=== PATIENT | female | born 1995 | race Caucasian/White ===

== ENCOUNTER → 2018-03-12 08:26 | Outpatient (CLI) | payer MEDICAID, SELFPAY ==
[2018-03-12 09:15] LABS: Cholesterol 179 mg/dL (200); Glucose 120 mg/dL (74-106); High Density Lipoprotein 47 mg/dL; T4 Free Direct 0.84 ng/dL (0.76-1.46); Thyroid Stim Hormone (TSH) 3.58 uIU/mL (0.358-3.74); Triglycerides 98 mg/dL; Very Low Density Lipoprotein 20 mg/dL (5-40)
== END ==
PROVIDERS: Family Provider Student in an Organized Health Care Education/Training Program; PCP Student in an Organized Health Care Education/Training Program; Referring Provider Obstetrics & Gynecology; Visit Provider Obstetrics & Gynecology
DX: E28.2 Polycystic ovarian syndrome (principal)
CPT/HCPCS: 36415; 80061; 82947; 84439; 84443

== ENCOUNTER → 2018-03-15 15:44 | Outpatient (CLI) | payer MEDICAID, SELFPAY ==
--- NOTE | 2018-03-15 15:46 | US_ITS ---
STUDY: ULTRASOUND TRANSVAGINAL CLINICAL: Female, 22 years old. PCOS TECHNIQUE: Transvaginal COMPARISON: None. FINDINGS: Normal uterine size measuring 3.1 x 4.7 x 3.0 cm in maximal craniocaudal dimension. There are no myometrial masses. Normal endometrial thickness measuring 7 mm. There are no endometrial masses, and there is no fluid in the endometrial cavity. Nabothian cysts at the uterine cervix. Normal right ovary, measuring 3.5 x 4.4 x 2.8 cm. There are multiple follicles without a dominant cyst. Normal left ovary, measuring 2.7 x 2.6 x 2.5 cm. There are multiple follicles without a dominant cyst. There is no free fluid in the pelvis. The urinary bladder has a volume of 255 cc. US/Transvaginal Non- IMPRESSION: Nabothian cysts. Electronically Signed: Deepak Cordova DO at 23:34 EDT Tel [phone], Service support ,
--- NOTE | 2018-03-15 15:46 | US_ITS ---
STUDY: ULTRASOUND TRANSVAGINAL CLINICAL: Female, 22 years old. PCOS TECHNIQUE: Transvaginal COMPARISON: None. FINDINGS: Normal uterine size measuring 3.1 x 4.7 x 3.0 cm in maximal craniocaudal dimension. There are no myometrial masses. Normal endometrial thickness measuring 7 mm. There are no endometrial masses, and there is no fluid in the endometrial cavity. Nabothian cysts at the uterine cervix. Normal right ovary, measuring 3.5 x 4.4 x 2.8 cm. There are multiple follicles without a dominant cyst. Normal left ovary, measuring 2.7 x 2.6 x 2.5 cm. There are multiple follicles without a dominant cyst. There is no free fluid in the pelvis. The urinary bladder has a volume of 255 cc. US/Pelvic (Non ) IMPRESSION: Nabothian cysts. Electronically Signed: Deepak Cordova DO at 23:34 EDT Tel [phone], Service support ,
--- NOTE | 2018-03-15 15:46 | US_ITS ---
STUDY: THYROID ULTRASOUND REASON FOR EXAM: Female, 22 years old. PCOS TECHNIQUE: Ultrasound evaluation of the thyroid was performed with real-time and static ramirez-scale imaging. COMPARISON: None. FINDINGS: RIGHT LOBE: The right lobe of the thyroid gland measures 5.1 x 1.9 x 1.9 cm. There is a homogeneous echotexture. There are no demonstrated solid, cystic or complex lesions. LEFT LOBE: The left lobe of the thyroid gland measures 5.1 x 2.1 x 1.8 cm. There is a homogeneous echotexture. There are no demonstrated solid, cystic or complex lesions. ISTHMUS: The isthmus measures 3 mm . The regional lymph nodes are normal. US/Thyroid IMPRESSION: Normal ultrasound examination of the thyroid. Electronically Signed: Deepak Cordova DO at 23:33 EDT Tel [phone], Service support ,
== END ==
LOC: PAVLAB 03-11 10:07 → US 15:45
PROVIDERS: Family Provider Student in an Organized Health Care Education/Training Program; PCP Student in an Organized Health Care Education/Training Program; Referring Provider Obstetrics & Gynecology; Visit Provider Obstetrics & Gynecology
DX: E28.2 Polycystic ovarian syndrome (principal)
CPT/HCPCS: 76536; 76830; 76856; 93976

== ENCOUNTER → 2019-02-11 09:17 | Outpatient (CLI) | payer OTHER, MEDICAID, SELFPAY ==
[2018-11-19 10:36] VITALS: BMI 42.4
[2019-02-11 10:22] LABS: Absolute Lymphocyte Count 2.84 X10^3/uL (0.83-4.51); Absolute Neutrophil Count 3.5 X10^3/uL (2.0-7.7); Basophil# 0.03 X10^3/uL; Basophil% 0.4 % (0-1); Eosinophil# 0.17 X10^3/uL; Eosinophils% 2.5 % (0-5); Hematocrit 41.6 % (37-47); Hemoglobin 13.5 g/dL (12.0-15.0); Lymphocyte # 2.84 X10^3/ul (4.0); Lymphocyte % 41.3 % (19-41); Mean Corp Hgb Conc 32.5 g/dL (32-36); Mean Corpuscular Hgb 27.7 pg (27.0-32.0); Mean Corpuscular Volume 85.2 fL (81-99); Monocyte# 0.34 X10^3/uL; Monocyte% 4.9 % (0-10); NRBC Flagged by Analyzer 0 % (0-5); Neutrophil # 3.47 X10^3/uL (2.7-7.7); Neutrophil % 50.5 % (47-70); Platelet Count 292 K/mm3 (150-450); RBC Distribution Width CV 13.7 % (11.6-14.6); RBC Distribution Width SD 42.4 fl (35.1-43.9); Red Blood Count 4.88 M/mm3 (4.2-5.4); White Blood Count 6.9 K/mm3 (4.4-11.0)
[2019-02-11 10:51] LABS: Hemoglobin A1c 5.3 % (4.2-6.3)
[2019-02-11 11:14] LABS: ALB/GLOB Ratio 1.1 RATIO (0.9-2.4); AST(SGOT) 16 U/L (15-37); Alanine Aminotransfer ALT/SGPT 36 U/L (13-56); Albumin, Serum 3.7 g/dL (3.2-5.0); Alkaline Phosphatase 81 U/L (45-117); Anion Gap 5 (5-15); BUN 9 mg/dL (7-18); BUN/Creat Ratio 13.3 RATIO (10-20); Calcium,Total 8.8 mg/dL (8.5-10.1); Chloride 110 mmol/L (98-107); Cholesterol 157 mg/dL (200); Creatinine, Serum 0.68 mg/dL (0.55-1.02); EST Glomerular Filtration Rate 116 mL/min (>60); Est Glom Filt Rate - Afr Amer 140 mL/min (>60); Globulin 3.5 g/dL (2.2-4.2); Glucose 104 mg/dL (74-106); High Density Lipoprotein 39 mg/dL; Potassium 3.6 mmol/L (3.5-5.1); Protein, Total 7.2 g/dL (6.4-8.2); Sodium Level 140 mmol/L (136-145); Triglycerides 178 mg/dL; Very Low Density Lipoprotein 36 mg/dL (5-40)
== END ==
PROVIDERS: Family Provider Family Medicine; PCP Family Medicine; Referring Provider Family Medicine; Visit Provider Family Medicine
DX: E66.01 Morbid (severe) obesity due to excess calories (principal); L83 Acanthosis nigricans; J45.20 Mild intermittent asthma, uncomplicated
CPT/HCPCS: 36415; 80053; 80061; 83036; 84443; 85025

== ENCOUNTER 2019-02-21 06:58 | Outpatient (RCR) | payer OTHER, SELFPAY ==
[2018-11-19 10:36] VITALS: BMI 42.4
--- NOTE | 2019-02-21 09:00 | HP.PTEVAL ---
Patient's Visit Information DANIELE MURRAY is a 23 year old F referred to Physical Therapy by Gokul Albert MD with a diagnosis of R MCL Sprain. Date of Evaluation: 02/21/19 Physical Therapist: Twila Chand DPT - Visit Plan Frequency: 1x/Week Duration: 1 Week Plan: 02/21/19 - Pt. given HEP to perform I at [employer], isntructed to reach out if concerns. pt. educated on pain management & proper exercise progression. HEP Prescribed: SLR, Supine Bridges, SL Clams (BTB), STS, SLS, LEg Curl Machine, Leg Press, Hip Add. Squeeze, Lateral Band Walks, Lateral Step-Ups. - Subjective Findings: Pt. began having R knee pain 2 months ago, visited and stated it was a sprain. [employer]. Believes it happened at the gym working o the elliptical and slipped. Flares up when on your feet. Pain free currently, pain doesn't get bad until night time. Worst: 4/10. Aggravating: being on her feet a lot, squatting, crouching, sitting cross-legged. Pain free Relieving factors: Ibuprofein, ice. Marcus disruption of sleep & N/T & radiating pain up and down the leg. Reports knee has gotten a lot better and stairs have been good. 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 Exercise program: Regular member at [employer] before injury. PMH/Meds: No significant concerns. No tests performed by - referred for PT for evaluate/treat. - Objective Posture: RS, FH - coreected w/ v/c, but not maintained. Gait: slight B toe-out, no other deviations noted. HR/TR: WFL w/ UE assist. SLS: R/L 15 seconds - no pain/discomfort reported (slight LOB). ROM: Ankle/Knee/Hip WFL. Strength: Ankle 5/5, Knee Ext 5/5, Knee Flex 4/5, Hip 5/5 Core: Fair minus. Flexibility: GAstroc & soleus: mild, Hamstring: Mod. Palpation: TTP w/ light touch at medial knee. Sensation: WNL to Gross B touch - Goals Goal 1:: Pt. will be I /w HEP & progression. Goal Time Frame: 4-6 Weeks - Rehabilitation Potential Physical Therapy Diagnosis: Presents w/ hypomobility and R knee pain which leads to pain performing ADL's. Rehabilitation Potential: Good - Anticipated Interventions Patient/Client Instruction: Educate patient on: Benefits of Fitness Program Therapeutic Exercise to Include: Strength training, Endurance training, Balance training, Postural training, Flexibilty training For the Purpose of:: To improve muscle performance and motor function Thank you for the opportunity to evaluate your patient. For Medicare and Medicare HMO plans, please review the plan of care and approve it. It will need to be FAXED BACK to us at [phone] for Medicare purposes. For Medicare only, by signing this I certify the plan of care. Please let me know if there are questions or concerns regarding this plan of care. Physician Signature: Date:
--- NOTE | 2019-04-27 10:37 | HP.PT.NRP ---
HP - Discharge Summary (1) - Patient Information DANIELE MURRAY was seen in my office for initial evaluation on 02/21/19. The following Plan of Care was established for this patient: Initial Frequency: 1x/Week Initial Duration: 1 Week - Anticipated Interventions Patient/Client Instruction: Educate patient on: Benefits of Fitness Program Therapeutic Exercise to Include: Strength training, Endurance training, Balance training, Postural training, Flexibilty training For the Purpose of:: To improve muscle performance and motor function This patient was last seen in our office . Pertinent comments regarding their Physical therapy will appear below: At this point I will be discontinuing this patient from physical therapy. I would be happy to see this patient again in the future if found appropriate by the physician. Thank you! JF BaronT
== END 2019-02-21 19:00 | disposition home or self-care (01) ==
LOC: PT 06:58
PROVIDERS: Family Provider Family Medicine; PCP Family Medicine; Referring Provider Family Medicine; Visit Provider Family Medicine
DX: S83.411D Sprain of medial collateral ligament of right knee, subsequent encounter (principal)
CPT/HCPCS: 97110; 97161

== ENCOUNTER → 2019-02-22 10:29 | Outpatient (CLI) | payer OTHER, SELFPAY ==
[2019-02-22 10:19] VITALS: BMI 42.4
[2019-02-22 12:22] LABS: Follicle Stimulating Hormone 4.2 mIU/mL; Prolactin 8.1 ng/mL
[2019-02-22 19:44] LABS: Chlamydia Trachomatis by PCR Negative (Negative); Neisserai gonorrhoeae by PCR Negative (Negative); Probe Check PASS; Sample Adequacy Control PASS; Specimen Processing Control PASS
[2019-02-24 03:06] LABS: DHEA Sulfate 272.7 ug/dL (110.0-431.7)
[2019-02-24 15:17] LABS: Testosterone Free 3.4 pg/mL (0.0-4.2)
[2019-02-27 13:40] LABS: 17-Hydroxyprogesterone 55 ng/dL (.)
[2019-03-08 15:43] LABS: HPV Reflexed? NOT INDICATED
== END ==
PROVIDERS: Family Provider Family Medicine; PCP Family Medicine; Referring Provider Nurse Practitioner Women's Health; Visit Provider Nurse Practitioner Women's Health
DX: Z12.4 Encounter for screening for malignant neoplasm of cervix (principal); Z11.3 Encounter for screening for infections with a predominantly sexual mode of transmission; N91.1 Secondary amenorrhea
CPT/HCPCS: 36415; 82627; 83001; 83498; 84146; 84402; 87491; 87591; 88175; 82626; G0145

== ENCOUNTER → 2019-06-10 13:43 | Outpatient (CLI) | payer OTHER, SELFPAY ==
[2019-04-06 15:26] VITALS: BMI 42.4
--- NOTE | 2019-06-10 13:44 | US_ITS ---
STUDY: ULTRASOUND TRANSVAGINAL CLINICAL: Female, 23 years old. irregular bleeding -- LMP 06/09/19 TECHNIQUE: Transvaginal COMPARISON: None. FINDINGS: Normal uterine size measuring 8.9 x 4.6 x 3.3 cm in maximal craniocaudal dimension. There are no myometrial masses. Normal endometrial thickness measuring 10.0 mm. The endometrium is hyperechoic. There are no endometrial masses, and there is no fluid in the endometrial cavity. There are small nabothian cysts. Normal right ovary, measuring 3.7 x 2.3 x 2.5 cm. There are multiple follicles, largest measuring 2.9 x 2.1 x 2.1 cm. Normal left ovary, measuring 2.3 x 2.9 x 1.9 cm. There are multiple follicles without a dominant cyst. There is no free fluid in the pelvis. Polycystic ovary disease: No. US/Transvaginal Non- IMPRESSION: Right-sided ovarian cyst measuring 2.9 cm maximum dimension otherwise normal female pelvis ultrasound. Electronically Signed: Lisa Bautista MD at 4:11 EST , Service support ,
--- NOTE | 2019-06-10 13:44 | US_ITS ---
STUDY: ULTRASOUND TRANSVAGINAL CLINICAL: Female, 23 years old. irregular bleeding -- LMP 06/09/19 TECHNIQUE: Transvaginal COMPARISON: None. FINDINGS: Normal uterine size measuring 8.9 x 4.6 x 3.3 cm in maximal craniocaudal dimension. There are no myometrial masses. Normal endometrial thickness measuring 10.0 mm. The endometrium is hyperechoic. There are no endometrial masses, and there is no fluid in the endometrial cavity. There are small nabothian cysts. Normal right ovary, measuring 3.7 x 2.3 x 2.5 cm. There are multiple follicles, largest measuring 2.9 x 2.1 x 2.1 cm. Normal left ovary, measuring 2.3 x 2.9 x 1.9 cm. There are multiple follicles without a dominant cyst. There is no free fluid in the pelvis. Polycystic ovary disease: No. US/Pelvic (Non ) IMPRESSION: Right-sided ovarian cyst measuring 2.9 cm maximum dimension otherwise normal female pelvis ultrasound. Electronically Signed: Lisa Bautista MD at 4:11 EST , Service support ,
== END ==
PROVIDERS: Family Provider Family Medicine; PCP Family Medicine; Referring Provider Nurse Practitioner Women's Health; Visit Provider Nurse Practitioner Women's Health
DX: E28.2 Polycystic ovarian syndrome (principal); N92.6 Irregular menstruation, unspecified
CPT/HCPCS: 76830; 76856; 93976

== ENCOUNTER → 2019-10-06 08:34 | Outpatient (CLI) | payer SELFPAY ==
[2019-06-15 14:04] VITALS: BMI 42.4
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
== END ==
PROVIDERS: PCP Family Medicine; Referring Provider Family Medicine; Visit Provider Family Medicine
DX: S13.4XXA Sprain of ligaments of cervical spine, initial encounter (principal)
CPT/HCPCS: 72040

== ENCOUNTER → 2021-02-07 15:34 | Outpatient (CLI) | payer MEDICAID, SELFPAY ==
[2021-02-07 15:53] LABS: Absolute Neutrophil Count 4.2 X10^3/uL (2.0-7.7); Basophil# 0.04 X10^3/uL; Basophil% 0.5 % (0-1); Eosinophil# 0.12 X10^3/uL; Eosinophils% 1.5 % (0-5); Hematocrit 37.7 % (37-47); Lymphocyte % 37.3 % (19-41); Mean Corp Hgb Conc 31.8 g/dL (32-36); Mean Corpuscular Hgb 27.8 pg (27.0-32.0); Mean Corpuscular Volume 87.5 fL (81-99); Mean Platelet Vol. 9.6 fl (6.2-12.0); Monocyte# 0.43 X10^3/uL; Monocyte% 5.5 % (0-10); NRBC Flagged by Analyzer 0 % (0-5); Neutrophil # 4.24 X10^3/uL (2.7-7.7); Neutrophil % 54.7 % (47-70); Platelet Count 331 K/mm3 (150-450); RBC Distribution Width CV 13.8 % (11.6-14.6); RBC Distribution Width SD 43.7 fl (35.1-43.9); Red Blood Count 4.31 M/mm3 (4.2-5.4); White Blood Count 7.8 K/mm3 (4.4-11.0)
[2021-02-07 16:19] LABS: Thyroid Stim Hormone (TSH) 3.26 uIU/mL (0.358-3.74)
== END ==
PROVIDERS: Referring Provider Nurse Practitioner Women's Health; Visit Provider Nurse Practitioner Women's Health
DX: Z13.29 Encounter for screening for other suspected endocrine disorder (principal); N92.1 Excessive and frequent menstruation with irregular cycle
CPT/HCPCS: 36415; 84443; 85025

== ENCOUNTER → 2021-02-20 16:01 | Outpatient (CLI) | payer MEDICAID, SELFPAY ==
--- NOTE | 2021-02-20 16:05 | US_ITS ---
STUDY: ULTRASOUND OF THE FEMALE PELVIS - COMPLETE REASON FOR EXAM: Female, 25 years old. abnormal uterine bleeding LMP: TECHNIQUE: Transvaginal and transabdominal TECHNICAL QUALITY: Adequate. COMPARISON: None. FINDINGS: The uterus is anteverted and is in a midline position. The uterus measures 9 x 4.8 x 3.6 cm. Normal uterine cervix. The endometrium measures 11 mm in thickness, and is hyperechoic. There is no demonstrated endometrial mass. There is no demonstrated myometrial mass. I.U.D. - The patient does not have an I.U.D. The right ovary is visualized. The right ovary measures 3.4 x 2.7 x 2.4 cm. There is no right ovarian cyst or ovarian mass. There is no visualized right adnexal mass or complex lesion. There is normal arterial and normal venous vascularity. The left ovary is visualized. The left ovary measures 3.1 x 3 x 2 cm. There is no left ovarian cyst or ovarian mass. There is no visualized left adnexal mass or complex lesion. There is normal arterial and normal venous vascularity. There is no fluid in the cul-de-sac. The pre void volume of the bladder was 100.88 ml. US/Transvaginal Non- IMPRESSION: Normal female pelvis. Electronically Signed: Gustabo Ramos MD at 17:40 EDT , Service support ,
--- NOTE | 2021-02-20 16:05 | US_ITS ---
STUDY: ULTRASOUND OF THE FEMALE PELVIS - COMPLETE REASON FOR EXAM: Female, 25 years old. abnormal uterine bleeding LMP: TECHNIQUE: Transvaginal and transabdominal TECHNICAL QUALITY: Adequate. COMPARISON: None. FINDINGS: The uterus is anteverted and is in a midline position. The uterus measures 9 x 4.8 x 3.6 cm. Normal uterine cervix. The endometrium measures 11 mm in thickness, and is hyperechoic. There is no demonstrated endometrial mass. There is no demonstrated myometrial mass. I.U.D. - The patient does not have an I.U.D. The right ovary is visualized. The right ovary measures 3.4 x 2.7 x 2.4 cm. There is no right ovarian cyst or ovarian mass. There is no visualized right adnexal mass or complex lesion. There is normal arterial and normal venous vascularity. The left ovary is visualized. The left ovary measures 3.1 x 3 x 2 cm. There is no left ovarian cyst or ovarian mass. There is no visualized left adnexal mass or complex lesion. There is normal arterial and normal venous vascularity. There is no fluid in the cul-de-sac. The pre void volume of the bladder was 100.88 ml. US/Pelvic (Non ) IMPRESSION: Normal female pelvis. Electronically Signed: Gustabo Ramos MD at 17:40 EDT , Service support ,
== END ==
PROVIDERS: Referring Provider Nurse Practitioner Women's Health; Visit Provider Nurse Practitioner Women's Health
DX: N92.1 Excessive and frequent menstruation with irregular cycle (principal)
CPT/HCPCS: 76830; 76856